=== PATIENT | male | born 1960 | race Two or more races ===

== ENCOUNTER 2024-09-11 04:54 | Emergency (ER) | payer OTHER ==
[~2024-09-11] VITALS: Ht 182.9 cm; Wt 86.2 kg
[2024-09-11] MEDS ORDERED: KETOROLAC TROMETHAMINE 60 MG VIAL IM STA (07:13)
[2024-09-11] MEDS ORDERED: DEXAMETHASONE SODIUM PHOSPHATE 4 MG/ML VIAL IM STA (07:14)
[2024-09-11] MEDS ORDERED: ACETAMINOPHEN 500 MG GEL..CAP PO STA (07:14)
[2024-09-11] MEDS ORDERED: KETOROLAC TROMETHAMINE 60 MG VIAL IM ONE (07:41)
[2024-09-11] MEDS ORDERED: ACETAMINOPHEN 500 MG GEL..CAP PO ONE (07:42)
[2024-09-11] MEDS ORDERED: DEXAMETHASONE SODIUM PHOSPHATE 4 MG/ML VIAL ONE (07:42)
== END 2024-09-11 13:40 | disposition home or self-care (01) ==
LOC: ER 04:54
DX: S82.091A Other fracture of right patella, initial encounter for closed fracture (principal); W18.39XA Other fall on same level, initial encounter; Y93.89 Activity, other specified; Y92.89 Other specified places as the place of occurrence of the external cause

== ENCOUNTER 2024-09-29 11:55 | Outpatient (CLI) | payer OTHER | END 2024-09-29 11:58 | disposition home or self-care (01) | LOC: RAD 11:55 | PROVIDERS: ATTEND Orthopaedic Surgery | DX: S82.034A Nondisplaced transverse fracture of right patella, initial encounter for closed fracture (principal) ==

== ENCOUNTER 2025-01-24 12:27 | Outpatient (CLI) | payer OTHER | END 2025-01-24 12:28 | disposition home or self-care (01) | LOC: NUCLEAR 12:27 | PROVIDERS: ATTEND Orthopaedic Surgery | DX: M81.0 Age-related osteoporosis without current pathological fracture (principal) ==